=== PATIENT | female | born 1955 | race African-American/Black ===

== ENCOUNTER 2017-08-07 12:15 | Emergency (ER) | payer OTHER ==
[2017-08-07] MEDS ORDERED: ACETAMINOPHEN 325 MG TABLET (FP) PO ONE (12:41)
[2017-08-07] MEDS ORDERED: ACETAMINOPHEN 500 MG TABLET (FP) ONE (12:56)
[2017-08-07 13:00] VITALS: TEMP 97.4; BMI 34.7
[2017-08-07 13:13] VITALS: BP 154/82; PULSE 78
--- NOTE | 2017-08-07 13:48 | PDOC ---
History of Present Illness - General Chief Complaint: Injury Stated Complaint: FELL Time Seen by Provider: 08/07/17 12:33 History Source: Patient Exam Limitations: No Limitations - History of Present Illness Initial Comments: 08/07/17 13:24 61-year-old female with past medical history of hypertension, diabetes, hyperlipidemia, hypothyroidism presents with mechanical fall. The patient was at her job when she had a mechanical fall. She had fell onto left side and thinks she may have hit her head. Denies loss of consciousness. Complaining about left trapezius discomfort in addition to left rib pains and left headache. Patient does take baby aspirin. Denies any numbness or weakness. She finished her shift and took 1 Tylenol at 1:00 in the morning. Came to the ED for further evaluation. Past History - Past Medical History Allergies/Adverse Reactions: Allergies Allergy/AdvReac Type Severity Reaction Status Date / Time clarithromycin [From Biaxin] Allergy "TONGUE Verified 08/31/14 08:04 FELT FUNNY" Home Medications: Ambulatory Orders Levothyroxine [Synthroid -] 100 mcg PO DAILY 08/12/14 Olmesartan/Hydrochlorothiazide [Benicar Hct 20-12.5 mg Tablet] 1 each PO DAILY 08/12/14 Sitagliptin Phos/Metformin HCl [Janumet 50-1,000 mg Tablet] 1 tab PO BID Acetaminophen [Tylenol] 650 mg PO Q4H PRN #20 tablet 08/07/17 Amlodipine Besylate [Norvasc -] 5 mg PO DAILY 08/07/17 COPD: No Diabetes: Yes HTN: Yes Thyroid Disease: Yes - Surgical History Cholecystectomy: Yes - Immunization History Immunization Up to Date: No - Suicide/Smoking/Psychosocial Hx Smoking History: Never smoked Have you smoked in the past 12 months: No Hx Alcohol Use: No Drug/Substance Use Hx: No Substance Use Type: Alcohol Hx Substance Use Treatment: No Review of Systems - Review of Systems Able to Perform ROS?: Yes Comments:: 08/07/17 13:25 GENERAL/CONSTITUTIONAL: No fever, weakness. HEAD, EYES, EARS, NOSE AND THROAT: No change in vision. No ear pain or discharge. No sore throat. CARDIOVASCULAR: No chest pain or shortness of breath. RESPIRATORY: No cough, wheezing, or hemoptysis. GASTROINTESTINAL: No abdominal pain, nausea, vomiting, diarrhea, or decreased PO intolerance. GENITOURINARY: No dysuria, frequency, or change in urination. MUSCULOSKELETAL: Head pain, left ribs pain, left trapezius pain SKIN: No rash NEUROLOGIC: No headache, vertigo, loss of consciousness, or change in strength/ sensation. ENDOCRINE: No increased thirst. No abnormal weight change. HEMATOLOGIC/LYMPHATIC: No anemia, easy bleeding, or history of blood clots. ALLERGIC/IMMUNOLOGIC: No hives or skin allergy. *Physical Exam - Vital Signs Last Vital Signs Temp Pulse Resp BP Pulse Ox 97.4 F L 78 16 154/82 99 08/07/17 12:32 08/07/17 13:11 08/07/17 13:11 08/07/17 13:11 08/07/17 13:11 - Physical Exam Comments: 08/07/17 13:48 GENERAL: Awake, alert, and fully oriented, in no acute distress. HEAD: Mild hematoma on left parietal scalp. No c-spine tenderness. reproducible pain 2/2 palpation on left trapezius muscle. EYES: PERRLA, EOMI, sclera anicteric, conjunctiva clear ENT: Auricles normal inspection, hearing grossly normal, nares patent NECK: Normal ROM, supple LUNGS: Breath sounds equal, clear to auscultation bilaterally. No wheezes, and no crackles HEART: Regular rate and rhythm, normal S1 and S2, no murmurs, rubs or gallops CHEST: left lateral ribs tenderness to palpation approx 6th to 8th ribs. No flail chest appreciated. ABDOMEN: Soft, nontender, normoactive bowel sounds. No guarding, no rebound. No masses EXTREMITIES: Full range of motion with no tenderness elicited. NEUROLOGICAL: Cranial nerves II through XII intact. Normal speech, normal gait SKIN: Warm, Dry, normal turgor, no rashes or lesions noted. ED Treatment Course - RADIOLOGY Radiology Studies Ordered: Category Date Time Status HEAD CT WITHOUT CONTRAST [CT] Stat CT Scan 08/07/17 12:41 Ordered RIBS-LEFT SIDE [RAD] Stat Radiology 08/07/17 12:41 Ordered - Medications Given in the ED: ED Medications Discontinued Medications Generic Name Dose Route Start Last Admin Trade Name Freq PRN Reason Stop Dose Admin Acetaminophen 975 mg 08/07/17 12:41 08/07/17 12:58 Tylenol - PO 08/07/17 12:42 975 mg ONCE ONE Administration Medical Decision Making - Medical Decision Making 08/07/17 13:51 Vital Signs Temp Pulse Resp BP Pulse Ox 97.4 F L 78 16 154/82 99 08/07/17 12:32 08/07/17 13:11 08/07/17 13:11 08/07/17 13:11 08/07/17 13:11 61 yo F c/ mechanical fall. Otherwise breathing comfortably. Head CT given that she is on aspirin. No c-spine tenderness. Will defer on C-spine imaging. Left ribs radiograph. Pain control and reassess. 08/07/17 14:17 CT head negative. 08/07/17 14:17 Ribs xray reviewed, pending official radiology read. No acute fractures. Supportive care and follow up with PMD I discussed the physical exam findings, ancillary test results and final diagnoses with the patient. I answered all of the patient's questions. The patient was satisfied with the care received and felt comfortable with the discharge plan and treatment plan. The patient will call their primary care physician within 24 hours to arrange follow-up and will return to the Emergency Department with any new, persistant or worsening symptoms. *DC/Admit/Observation/Transfer Diagnosis at time of Disposition: Fall Qualifiers: Encounter type: initial encounter Qualified Code(s): W19.XXXA - Unspecified fall, initial encounter Rib contusion Qualifiers: Encounter type: initial encounter Laterality: left Qualified Code(s): S20.212A - Contusion of left front wall of thorax, initial encounter - Discharge Dispostion Disposition: HOME Condition at time of disposition: Good Admit: No - Prescriptions Prescriptions: Acetaminophen [Tylenol] 650 mg PO Q4H PRN #20 tablet PRN Reason: Pain - Referrals Referrals: Olman Zambrano MD [Primary Care Provider] - - Patient Instructions Printed Discharge Instructions: DI for Rib Contusion, DI for Closed Head Injury Additional Instructions: Your head CT is negative for acute findings. Your rib xrays preliminary reads are negative for fractures. Please call later for the official results at [phone]. Take 650 mg tylenol every 4 hours as needed for pain. It may take several days before your symptoms improve. - Post Discharge Activity Forms/Work/School Notes: Back to Work
== END 2017-08-07 14:42 | disposition home or self-care (01) ==
LOC: FER 12:15
DX: S20.212A Contusion of left front wall of thorax, initial encounter (principal); W18.39XA Other fall on same level, initial encounter; Y93.89 Activity, other specified; Y92.9 Unspecified place or not applicable; I10 Essential (primary) hypertension; E11.9 Type 2 diabetes mellitus without complications; E07.9 Disorder of thyroid, unspecified; E78.5 Hyperlipidemia, unspecified
CPT/HCPCS: 70450-TC; 71101-TC-FY; 99282-25